=== PATIENT | male | born 2000 | race Caucasian/White ===

== ENCOUNTER 2022-11-11 21:26 | Emergency (ER) | payer SELFPAY ==
[~2022-11-11] VITALS: Ht 175.3 cm; Wt 59.0 kg
[2022-11-11 21:45] VITALS: BP 130/84
--- NOTE | 2022-11-11 21:54 | NUR ---
RAPID STREP SWAB COLLECTED AND SENT TO LAB
[2022-11-12] MEDS ORDERED: KETOROLAC 60 MG/2 ML VIAL IM ONE (00:20)
[2022-11-12] MEDS ORDERED: cefTRIAXone 1,000 MG in LIDOCAINE MPF 1% 2.1 ML IM ONE (00:20)
[2022-11-12] MEDS ORDERED: DEXAMETHASONE 4 MG/ML VIAL PO ONE (00:20)
[2022-11-12] MEDS ORDERED: LIDOCAINE MPF 1% 5 ML ONE (00:36)
[2022-11-12] MEDS ORDERED: cefTRIAXone 1,000 MG VIAL ONE (00:36)
[2022-11-12] MEDS ORDERED: DEC4 PO (01:08)
[2022-11-12] MEDS ORDERED: AMOX1TAB8 PO (01:08)
[2022-11-12 01:30] VITALS: BP 130/84
--- NOTE | 2022-11-12 01:30 | NUR ---
Patient discharged with v/s stable. Written and verbal after care instructions given and explained. Patient alert, oriented and verbalized understanding of instructions. Ambulatory with steady gait. All questions addressed prior to discharge. ID band removed. Patient advised to follow up with PMD. Rx of AMOXICILLIN, DECADRON given. Patient educated on indication of medication including possible reaction and side effects. Opportunity to ask questions provided and answered.
== END 2022-11-12 01:30 | disposition home or self-care (01) ==
LOC: MED 21:26
DX: J02.9 Acute pharyngitis, unspecified (principal); Z79.899 Other long term (current) drug therapy
CPT/HCPCS: 87081; 96372; 99284; J0696; J1100; J1885; J2001